=== PATIENT | female | born 1950 | race Asian ===

== ENCOUNTER 2023-11-26 16:53 | Emergency (ER) | payer MEDICAID ==
[~2023-11-26] VITALS: Ht 154.9 cm; Wt 66.0 kg
[2023-11-26 16:59] VITALS: O2SAT 97
[2023-11-26] MEDS: KETOROLAC 15MG/ML VIAL IM ONE (17:35)
[2023-11-26] MEDS ORDERED: OFLO5DRO4 LEFT EAR (17:47)
[2023-11-26 17:53] VITALS: BP 135/89; PULSE 80; RESP 16; TEMP 98
== END 2023-11-26 18:09 | disposition home or self-care (01) ==
LOC: ER 16:53
DX: T16.2XXA Foreign body in left ear, initial encounter (principal); X58.XXXA Exposure to other specified factors, initial encounter; Y93.89 Activity, other specified; Y92.89 Other specified places as the place of occurrence of the external cause; Y99.8 Other external cause status
CPT/HCPCS: 99284; 69200; 96372; J1885